=== PATIENT | male | born 1965 | race Two or more races ===

== ENCOUNTER 2021-01-08 10:35 | Outpatient (REF) | payer OTHER, SELFPAY ==
[2021-01-08 10:40] LABS: MANUAL DIFF FLAG NO
[2021-01-08 10:44] LABS: Basophils Absolute Auto 0.1 X10*3/uL (0.0-0.2); Eosinophils Absolute Auto 0.2 X10*3/uL (0.0-0.4); Eosinophils Percent Auto 3.2 % (0-4); Hematocrit 46.2 % (42.0-52.0); Hemoglobin 16.4 g/dl (14.0-18.0); Imm Gran Abs Auto 0.02 X10*3/uL (0.00-0.03); Imm Gran Pct Auto 0.3 % (0.0-0.4); Lymphocytes Absolute Auto 1.7 X10*3/uL (1.2-4.9); Lymphocytes Percent Auto 26.7 % (20-40); Mean Corpuscular HGB Conc 35.5 g/dl (31.0-36.0); Mean Corpuscular Hemoglobin 32.5 pg (27.0-33.0); Mean Corpuscular Volume 91.5 fL (80.0-98.0); Mean Platelet Volume 10.3 fL (9.4-12.4); Monocytes Absolute Auto 0.6 X10*3/uL (0.1-1.2); Monocytes Percent Auto 10.3 % (2-11); Neutrophils Absolute Auto 3.6 x10*3/uL (2.0-8.3); Neutrophils Percent Auto 58.5 % (45-73); Platelet Count 212 X10*3/uL (160-400); Red Blood Count 5.05 X10*6/uL (4.60-5.80); Red Cell Distribution Width 12.1 % (11.0-16.0); White Blood Count 6.2 X10*3/uL (4.8-10.8)
[2021-01-08 10:48] LABS: Appearance Urine CLEAR; Color Urine YELLOW; Glucose Urine UA NEG (NEG); Leukocyte Esterase Urine NEG (NEG); Nitrite Urine NEG (NEG); Urine Blood NEG (NEG); Urine Ketones NEG (NEG); Urine Protein NEG (NEG-TRACE)
[2021-01-08 10:56] LABS: Alanine Aminotransferase 22 U/L (0-40); Albumin Level 4.2 g/dL (3.5-5.0); Alkaline Phosphatase 93 U/L (39-117); Anion Gap 10 (12-20); Aspartate Amino Transferase 20 U/L (5-37); Bilirubin Total 0.9 mg/dL (0.0-1.0); Blood Urea Nitrogen 10 mg/dL (9-16); Calcium 9.1 mg/dL (8.4-10.2); Carbon Dioxide 28 mmol/L (22-29); Chloride 106 mmol/L (96-108); Cholesterol 176 mg/dL; Estimated Glomerular Filt Rate > 60; Glucose Fasting 105 mg/dL (60-99); HDL Cholesterol 41 mg/dL; LDL Cholesterol Calculated 109 mg/dl; Potassium 4.3 mmol/L (3.3-5.1); Sodium 140 mmol/L (135-145); Total Protein 6.8 g/dL (6.5-8.0); Triglycerides 130 mg/dL
[2021-01-08 11:07] LABS: Estimated Average Glucose 105 mg/dL; Hemoglobin A1c % 5.3 %
[2021-01-08 11:17] LABS: Creatinine Urine 112.38 mg/dL; Microalbum/Creatinine Ratio Ur 4.4 ug/mg cr; PSA,Total (Free>4and<10) 0.71 ng/mL (0.00-4.00)
[2021-01-08 11:58] LABS: Reflex LDLD? No
== END 2021-01-08 10:36 | disposition home or self-care (01) ==
LOC: HO.LNP 10:35
PROVIDERS: PCP Internal Medicine; Visit Provider Internal Medicine
DX: Z00.00 Encounter for general adult medical examination without abnormal findings (principal); Z12.5 Encounter for screening for malignant neoplasm of prostate; E79.0 Hyperuricemia without signs of inflammatory arthritis and tophaceous disease; R73.03 Prediabetes; E87.6 Hypokalemia
CPT/HCPCS: 80053; 80061; 81003; 82043; 83036; 84153; 85025

== ENCOUNTER 2021-07-27 10:24 | Day surgery (SDC) | payer OTHER, SELFPAY ==
[2021-07-21 14:57] VITALS: BMI 31.9
--- NOTE | 2021-07-26 10:09 | HO.ANESPROP2 ---
Documented by User: Roxann Jhaveri NP 07/26/21 10:09 HPI - Anesthesia Eval Consult details Narrative: 56yo M for Colonoscopy FORMERLY [facility], [facility] Past Medical History Medical History (Updated 07/21/21 @ 14:56 by Francia Wray RN) Colon polyps Surgical History Surgical History (Updated 07/21/21 @ 14:56 by Francia Wray RN) History of surgery on lower extremity History of thumb surgery Hx of colonoscopy Hx of knee surgery Social History Social History Patient Tobacco Use Status: Never used Tobacco Second Hand Smoke Exposure: No Use of substances other than those prescribed or required for medical reasons: No Are you DNR?: No Advance Directives: No Advance Directives Information Provided: Yes Advance Directives on File: No Meds Allergies Allergy/AdvReac Type Severity Reaction Status Date / Time Penicillins [PENICILLINS] Allergy Unknown UNKNOWN Verified 07/27/21 12:29 Home Medications Medication Instructions Recorded Confirmed Last Taken Type No Known Home Meds 07/21/21 07/21/21 Unknown History Exam Exam Date and Time: July 26, 2021 1009 Height,Weight and Vital Signs: Height 6 ft 1 in Weight 109.769 kg Assessment and Plan Assessment Anesthesia Assessment: Chart Reviewed Documented by User: Ernestina Bella MD 07/27/21 12:34 FORMERLY [facility], [facility] Past Medical History Medical History (Updated 07/21/21 @ 14:56 by Francia Wray RN) Colon polyps Family History Family history of problems with anesthesia: No Surgical History Surgical History (Updated 07/21/21 @ 14:56 by Francia Wray RN) History of surgery on lower extremity History of thumb surgery Hx of colonoscopy Hx of knee surgery History of Problems with Anesthesia: No Social History Social History Patient Tobacco Use Status: Never used Tobacco Second Hand Smoke Exposure: No Use of substances other than those prescribed or required for medical reasons: No Are you DNR?: No Advance Directives: No Advance Directives Information Provided: Yes Advance Directives on File: No Meds Allergies Allergy/AdvReac Type Severity Reaction Status Date / Time Penicillins [PENICILLINS] Allergy Unknown UNKNOWN Verified 07/27/21 12:29 Home Medications Medication Instructions Recorded Confirmed Last Taken Type No Known Home Meds 07/21/21 07/21/21 Unknown History Exam Height,Weight and Vital Signs: Height 6 ft 1 in Weight 109.769 kg Vital Signs Temp Pulse Resp BP Pulse Ox 07/27/21 12:04 98.2 F 56 18 145/83 H 97 Airway Mallampati Class: II TM Dist: >3cm Neck ROM: Full Loose/Missing/Broken Teeth: No Heart: RRR Lungs: CTAB Assessment and Plan Assessment Anesthesia Assessment: Anesthesia Plan Discussed Final Anesthetic Review Family History of Problems with Anesthesia: No History of Problems with Anesthesia: No NPO: Yes ASA Class: I Final Preanesthetic Review: No Changes in Pt Med Stat, Meds/Allgs Chart Reviewed, Consent Obtained/Reviewed and Anes Risks/Benef Reviewed Patient Risk: Low Procedure Risk: Low Assessment/Block/Sedation in SS: Assess/Block/Sedation-SS Anesthetic Plan Anesthetic Plan: MAC: Disposition: Standard PACU
[2021-07-27 12:04] VITALS: BP 145/83; PULSE 56; RESP 18; TEMP 36.8; O2SAT 97
[2021-07-27] MEDS: Lactated Ringers 1,000 ML 100 ML IVCONT (12:06)
--- NOTE | 2021-07-27 12:27 | MHC.SHP ---
Pre-Procedural Eval Section A Date of Service: 07/27/21 The patient is an INPATIENT: No Changes since office visit: No Cold of Flu in the past 2 weeks, No New Medical Problems, No Changes in Medication and No Patient answered all questions The History & Physical has been completed within 30 days and I have reviewed it.: Yes Section B Chief Complaint: Other fecal abnormalities Allergies: Allergies Allergy/AdvReac Type Severity Reaction Status Date / Time Penicillins [PENICILLINS] Allergy Unknown UNKNOWN Unverified 11/21/19 17:42 Plan I have reviewed the history and physical and performed a pertinent physical examination on my patient. No changes have occurred unless specified.
[2021-07-27 13:14] VITALS: BP 110/64; PULSE 76; RESP 76; TEMP 36.2; O2SAT 92
--- NOTE | 2021-07-27 13:22 | P.BOP_ITS ---
Brief Operative Note Date of Service: 07/27/21 Pre-op diagnosis: heme pos stool Post-op diagnosis: same Surgeon: Charles Inman Anesthesia: MAC Was an Thread Checker used for this Procedure?: No Estimated blood loss (mL): 2 Pathology: other (polyps x3) Condition: stable Disposition: PACU
[2021-07-27 13:29] VITALS: BP 123/81; PULSE 66; RESP 20; TEMP 36.2; O2SAT 96
--- NOTE | 2021-07-27 23:54 | OP_ITS ---
SURGEON: Charles Inman MD INDICATIONS: Hemoccult-positive stools. PREOPERATIVE DIAGNOSIS: POSTOPERATIVE DIAGNOSIS: PROCEDURE PERFORMED: Colonoscopy to the terminal ileum with biopsy and snare polypectomy. ESTIMATED BLOOD LOSS: COMPLICATIONS: ANESTHESIA: ASSISTANTS: SPECIMENS: MEDICATIONS: Monitored anesthesia care. DESCRIPTION OF PROCEDURE: History and physical were performed. The risks and benefits of the procedure were explained to the patient. Informed consent was obtained. The patient was placed in the left lateral decubitus position. A digital rectal exam was performed and was found to be normal. The Olympus pediatric video colonoscope was introduced into the rectum and advanced to the cecum without difficulty. The cecum was identified by transillumination, palpation, and identification of ileocecal valve. Examination was performed. The scope was removed. He tolerated the procedure well and was taken to recovery area in stable condition. FINDINGS: The terminal ileum was normal. The visualized colonic mucosa was normal. There were 2 polyps in the cecum measuring less than 5 mm were removed with biopsy forceps. At 45 rather cm was a 6 mm polyp, which was snared. There was stool coating mucosa that was washed and suctioned as best possible. Retroflexed examination showed moderately large internal hemorrhoids. IMPRESSION: Colon polyps. RECOMMENDATION: Follow up the biopsy results. MD QUIANA Licona/DARYAL / [id number]
== END 2021-07-27 14:00 | disposition home or self-care (01) ==
PROVIDERS: PCP Internal Medicine; Visit Provider Internal Medicine Gastroenterology
PROC: 0DJD8ZZ Inspection of Lower Intestinal Tract, Via Natural or Artificial Opening Endoscopic (ICD-10-PCS; CPT 45378; principal; 2021-07-27 12:10)
DX: R19.5 Other fecal abnormalities (principal); Z86.010 Personal history of colon polyps; D12.0 Benign neoplasm of cecum; D12.5 Benign neoplasm of sigmoid colon; K64.8 Other hemorrhoids; Z98.890 Other specified postprocedural states; Z88.0 Allergy status to penicillin
CPT/HCPCS: 45385; 45380; 88305

== ENCOUNTER 2022-01-17 11:40 | Outpatient (REF) | payer OTHER, SELFPAY ==
[2022-01-17 11:45] LABS: MANUAL DIFF FLAG NO
[2022-01-17 12:18] LABS: Basophils Absolute Auto 0.1 X10*3/uL (0.0-0.2); Basophils Percent Auto 1.1 % (0-2); Eosinophils Absolute Auto 0.3 X10*3/uL (0.0-0.4); Hematocrit 47.5 % (42.0-52.0); Hemoglobin 16.6 g/dl (14.0-18.0); Imm Gran Abs Auto 0.03 X10*3/uL (0.00-0.03); Imm Gran Pct Auto 0.5 % (0.0-0.4); Lymphocytes Absolute Auto 2.2 X10*3/uL (1.2-4.9); Lymphocytes Percent Auto 34.6 % (20-40); Mean Corpuscular HGB Conc 34.9 g/dl (31.0-36.0); Mean Corpuscular Hemoglobin 32.3 pg (27.0-33.0); Mean Corpuscular Volume 92.4 fL (80.0-98.0); Mean Platelet Volume 10.3 fL (9.4-12.4); Monocytes Absolute Auto 0.6 X10*3/uL (0.1-1.2); Neutrophils Absolute Auto 3.2 x10*3/uL (2.0-8.3); Neutrophils Percent Auto 50.8 % (45-73); Platelet Count 213 X10*3/uL (160-400); Red Blood Count 5.14 X10*6/uL (4.60-5.80); White Blood Count 6.2 X10*3/uL (4.8-10.8)
[2022-01-17 12:40] LABS: Estimated Average Glucose 105 mg/dL; Hemoglobin A1C 148.3932 umol/L; Hemoglobin A1c % 5.3 %
[2022-01-17 12:47] LABS: Appearance Urine Clear; Color Urine Yellow; Glucose Urine UA Negative (Negative); Leukocyte Esterase Urine Small (1+) (Negative); Nitrite Urine Negative (Negative); UMIC TRIGGER UA YES; Urine Blood Trace (Negative); Urine Ketones Negative (Negative); Urine Protein Negative (Neg-Trace)
[2022-01-17 12:59] LABS: Creatinine Urine 137.42 mg/dL; Microalbumin Urine < 5.0 mg/L; PSA,Total (Free>4and<10) 0.72 ng/mL (0.00-4.00)
[2022-01-17 13:15] LABS: Alanine Aminotransferase 27 U/L (0-40); Albumin Level 4.3 g/dL (3.5-5.0); Alkaline Phosphatase 98 U/L (39-117); Anion Gap 19 (12-20); Aspartate Amino Transferase 23 U/L (5-37); Bilirubin Total 0.5 mg/dL (0.0-1.0); Blood Urea Nitrogen 13 mg/dL (9-16); Calcium 9.3 mg/dL (8.4-10.2); Carbon Dioxide 20 mmol/L (22-29); Chloride 105 mmol/L (96-108); Cholesterol 195 mg/dL; Estimated Glomerular Filt Rate > 60; Glucose Fasting 107 mg/dL (60-99); HDL Cholesterol 43 mg/dL; LDL Cholesterol Calculated 104 mg/dl; Potassium 4.5 mmol/L (3.3-5.1); Sodium 139 mmol/L (135-145); Total Protein 7.3 g/dL (6.5-8.0); Triglycerides 243 mg/dL
[2022-01-17 13:28] LABS: Bacteria Urine None Seen (None Seen); Hyaline Casts Urine 0-2 /LPF (0-2); RBC Urine 0-2 /HPF (0-2); Renal Epithelial Cells Urine Present; Squamous Epithelial Cell Urine 0-2 /HPF (0-2)
== END 2022-01-17 11:41 | disposition home or self-care (01) ==
LOC: HO.LNP 11:40
PROVIDERS: Visit Provider Internal Medicine
DX: Z00.00 Encounter for general adult medical examination without abnormal findings (principal); R73.09 Other abnormal glucose; D69.6 Thrombocytopenia, unspecified; E78.6 Lipoprotein deficiency; Z12.5 Encounter for screening for malignant neoplasm of prostate
CPT/HCPCS: 80053; 80061; 81001; 82043; 83036; 84153; 85025

== ENCOUNTER 2023-01-31 10:27 | Outpatient (REF) | payer OTHER, SELFPAY ==
[2023-01-31 10:36] LABS: MANUAL DIFF FLAG NO
[2023-01-31 10:42] LABS: Appearance Urine Clear; Color Urine Yellow; Glucose Urine UA Negative (Negative); Leukocyte Esterase Urine Negative (Negative); Nitrite Urine Negative (Negative); PH 5.5 (5.0-9.0); Urine Blood Negative (Negative); Urine Ketones Negative (Negative); Urine Protein Negative (Neg-Trace)
[2023-01-31 10:44] LABS: Bacteria Urine None Seen (None Seen); Hyaline Casts Urine 0-2 /LPF (0-2); RBC Urine 0-2 /HPF (0-2); Squamous Epithelial Cell Urine 0-2 /HPF (0-2); WBC Urine 0-5 /HPF (0-5)
[2023-01-31 11:15] LABS: Creatinine Urine 245.89 mg/dL; Microalbum/Creatinine Ratio Ur 7.3 ug/mg cr (<30)
[2023-01-31 11:52] LABS: Basophils Absolute Auto 0.1 X10*3/uL (0.0-0.2); Eosinophils Absolute Auto 0.2 X10*3/uL (0.0-0.4); Eosinophils Percent Auto 2.8 % (0-4); Hematocrit 51.5 % (42.0-52.0); Hemoglobin 17.4 g/dl (14.0-18.0); Imm Gran Abs Auto 0.01 X10*3/uL (0.00-0.03); Imm Gran Pct Auto 0.2 % (0.0-0.4); Lymphocytes Absolute Auto 1.6 X10*3/uL (1.2-4.9); Lymphocytes Percent Auto 27.2 % (20-40); Mean Corpuscular HGB Conc 33.8 g/dl (31.0-36.0); Mean Corpuscular Hemoglobin 31.4 pg (27.0-33.0); Mean Platelet Volume 10.2 fL (9.4-12.4); Monocytes Absolute Auto 0.5 X10*3/uL (0.1-1.2); Monocytes Percent Auto 8.8 % (2-11); Neutrophils Absolute Auto 3.6 x10*3/uL (2.0-8.3); Platelet Count 229 X10*3/uL (160-400); Red Blood Count 5.54 X10*6/uL (4.60-5.80); Red Cell Distribution Width 12.3 % (11.0-16.0)
[2023-01-31 12:13] LABS: Alanine Aminotransferase 31 U/L (0-40); Albumin Level 4.3 g/dL (3.5-5.0); Alkaline Phosphatase 82 U/L (39-117); Anion Gap 11 (12-20); Aspartate Amino Transferase 23 U/L (5-37); Bilirubin Total 0.9 mg/dL (0.0-1.0); Blood Urea Nitrogen 11 mg/dL (9-16); Calcium 9.7 mg/dL (8.4-10.2); Carbon Dioxide 29 mmol/L (22-29); Chloride 104 mmol/L (96-108); Cholesterol 193 mg/dL (<200); Estimated Glomerular Filt Rate > 60; Glucose Fasting 117 mg/dL (60-99); HDL Cholesterol 42 mg/dL (>40); LDL Cholesterol Calculated 126 mg/dL (<100); Potassium 4.1 mmol/L (3.3-5.1); Sodium 140 mmol/L (135-145); Total Protein 7.5 g/dL (6.5-8.0); Triglycerides 128 mg/dL (<150)
[2023-01-31 12:29] LABS: PSA,Total (Free>4and<10) 1.06 ng/mL (0.00-4.00)
[2023-01-31 12:32] LABS: Estimated Average Glucose 108 mg/dL; Hemoglobin A1C 151.0538 umol/L; Hemoglobin A1c % 5.4 % (<6.0)
== END 2023-01-31 10:28 | disposition home or self-care (01) ==
LOC: HO.LNP 10:27
PROVIDERS: Visit Provider Internal Medicine
DX: Z00.00 Encounter for general adult medical examination without abnormal findings (principal); Z12.5 Encounter for screening for malignant neoplasm of prostate; R73.03 Prediabetes; E78.6 Lipoprotein deficiency
CPT/HCPCS: 80053; 80061; 81001; 82043; 82570; 83036; 84153; 85025

== ENCOUNTER 2024-04-01 10:27 | Outpatient (REF) | payer OTHER, SELFPAY ==
[2024-04-01 10:30] LABS: MANUAL DIFF FLAG NO
[2024-04-01 10:49] LABS: Basophils Absolute Auto 0.1 X10*3/uL (0.0-0.2); Basophils Percent Auto 0.6 % (0-2); Eosinophils Absolute Auto 0.1 X10*3/uL (0.0-0.4); Eosinophils Percent Auto 1.3 % (0-4); Hematocrit 50.9 % (42.0-52.0); Hemoglobin 17.5 g/dl (14.0-18.0); Imm Gran Abs Auto 0.02 X10*3/uL (0.00-0.03); Imm Gran Pct Auto 0.2 % (0.0-0.4); Lymphocytes Absolute Auto 1.8 X10*3/uL (1.2-4.9); Lymphocytes Percent Auto 18.6 % (20-40); Mean Corpuscular HGB Conc 34.4 g/dl (31.0-36.0); Mean Corpuscular Hemoglobin 32.2 pg (27.0-33.0); Mean Corpuscular Volume 93.6 fL (80.0-98.0); Mean Platelet Volume 10.3 fL (9.4-12.4); Monocytes Absolute Auto 0.9 X10*3/uL (0.1-1.2); Monocytes Percent Auto 9.9 % (2-11); Neutrophils Absolute Auto 6.6 x10*3/uL (2.0-8.3); Neutrophils Percent Auto 69.4 % (45-73); Platelet Count 201 X10*3/uL (160-400); Red Blood Count 5.44 X10*6/uL (4.60-5.80); Red Cell Distribution Width 12.3 % (11.0-16.0); White Blood Count 9.4 X10*3/uL (4.8-10.8)
[2024-04-01 10:57] LABS: Appearance Urine Hazy; Color Urine Yellow; Estimated Average Glucose 100 mg/dL; Glucose Urine UA Negative (Negative); Hemoglobin A1C 141.8131 umol/L; Hemoglobin A1c % 5.1 % (<6.0); Leukocyte Esterase Urine Negative (Negative); Nitrite Urine Positive (Negative); Specific Gravity - Urine 1.025 (1.005-1.025); UMIC TRIGGER UACC YES; Urine Blood Moderate (2+) (Negative); Urine Ketones 15 mg/dL (Negative); Urine Protein Negative (Neg-Trace)
[2024-04-01 11:19] LABS: PSA,Total (Free>4and<10) 0.97 ng/mL (0.00-4.00)
[2024-04-01 11:25] LABS: Alanine Aminotransferase 23 U/L (0-40); Albumin Level 4.1 g/dL (3.5-5.0); Alkaline Phosphatase 80 U/L (39-117); Anion Gap 12 (12-20); Aspartate Amino Transferase 21 U/L (5-37); Bilirubin Total 1.5 mg/dL (0.0-1.0); Blood Urea Nitrogen 12 mg/dL (9-16); Calcium 9.7 mg/dL (8.4-10.2); Carbon Dioxide 24 mmol/L (22-29); Chloride 107 mmol/L (96-108); Cholesterol 164 mg/dL (<200); Estimated Glomerular Filt Rate > 60; Glucose Fasting 115 mg/dL (60-99); HDL Cholesterol 57 mg/dL (>40); LDL Cholesterol Calculated 90 mg/dL (<100); Potassium 4.3 mmol/L (3.3-5.1); Sodium 139 mmol/L (135-145); Total Protein 7.6 g/dL (6.5-8.0); Triglycerides 88 mg/dL (<150)
[2024-04-01 11:26] LABS: Bacteria Urine 1+ (None Seen); Hyaline Casts Urine 0-2 /LPF (0-2); Squamous Epithelial Cell Urine 0-2 /HPF (0-2); UACC Culture Trigger YES; WBC Urine 0-5 /HPF (0-5)
[2024-04-01 11:47] LABS: Creatinine Urine 400.16 mg/dL; Microalbum/Creatinine Ratio Ur 5.2 ug/mg cr (<30)
--- OUTSIDE RECORDS SUMMARY | 2024-04-01 15:10 | XMS_ITS | Patient Health Record ---
Author Organization Austin Benz MD Address [address] [place], [place] [id number] Care Team Providers Care Seam Finisher Name Role Phone Austin Benz Primary Care Provider [phone] Allergies Allergen (clinical drug ingredient) Drug/Non Drug Allergy documented on EMR Reaction Allergy Type Onset Date Status Penicillin G Benzathine Rash Drug Allergy Active Results Component Value Reference Range Notes Complete Blood Count Auto Di ff (Not yet reviewed by provider) Interpretation: Performing Lab:[facility], [address] [place] [phone] Notes/Report: White Blood Count 9.4 4.8-10.8 X10*3/uL Red Blood Count 5.44 4.60-5.80 X10*6/uL Hemoglobin 17.5 14.0-18.0 g/dl Hematocrit 50.9 42.0-52.0 % Mean Corpuscular Volume 93.6 80.0-98.0 fL Mean Corpuscular Hemoglobin 32.2 27.0-33.0 pg Mean Corpuscular HGB Conc 34.4 31.0-36.0 g/dl Red Cell Distribution Width 12.3 11.0-16.0 % Platelet Count 201 160-400 X10*3/uL Mean Platelet Volume 10.3 9.4-12.4 fL Neutrophils Percent Auto 69.4 45-73 % Imm Gran Pct Auto 0.2 0.0-0.4 % Lymphocytes Percent Auto 18.6 20-40 % Monocytes Percent Auto 9.9 2-11 % Eosinophils Percent Auto 1.3 0-4 % Basophils Percent Auto 0.6 0-2 % NRBC Pct Auto 0.0 0.0-0.2 /100WBC Neutrophils Absolute Auto 6.6 2.0-8.3 x10*3/u L Imm Gran Abs Auto 0.02 0.00-0.03 X10*3/uL Lymphocytes Absolute Auto 1.8 1.2-4.9 X10*3/u L Monocytes Absolute Auto 0.9 0.1-1.2 X10*3/uL Eosinophils Absolute Auto 0.1 0.0-0.4 X10*3/u L Basophils Absolute Auto 0.1 0.0-0.2 X10*3/uL NRBC Abs Auto 0.000 0.0-0.012 X10*3/uL Comprehensive [place]. Panel Fa st (Not yet reviewed by provider) Interpretation: Performing Lab:[facility], [address] [place] [phone] Notes/Report: Sodium 139 135-145 mmol/L Potassium 4.3 3.3-5.1 mmol/L Chloride 107 96-108 mmol/L Carbon Dioxide 24 22-29 mmol/L Anion Gap 12 12-20 Blood Urea Nitrogen 12 9-16 mg/dL Creatinine 1.10 0.5-1.4 mg/dL Estimated Glomerular Filt Rate > 60 Chronic Kidney Disease: Estimated GFR < 60 mL/min/1.73m2 Severe Kidney Disease: Estimated GFR < 15 mL/min/1.73m2 Glucose Fasting 115 60-99 mg/dL A fasting glucose from 100-125 mg/dl is considered impaired (pre-diabetes). Calcium 9.7 8.4-10.2 mg/dL Bilirubin Total 1.5 0.0-1.0 mg/dL Aspartate Amino Transferase 21 5-37 U/L Alanine Aminotransferase 23 0-40 U/L Total Protein 7.6 6.5-8.0 g/dL Albumin Level 4.1 3.5-5.0 g/dL Alkaline Phosphatase 80 39-117 U/L Lipid Panel (Not yet reviewe d by provider) Interpretation: Performing Lab:[facility], [address] [place] [phone] Notes/Report: Triglycerides 88 <150 mg/dL Desirable Triglyceride: less than 150 mg/dL Borderline High Triglyceride 150-199 mg/dL High Triglyceride: 200-499 mg/dL Very High Triglyceride: greater than or equal to 5OO mg/dL Cholesterol 164 <200 mg/dL Desirable Cholesterol: less than 200 mg/dL Borderline High Cholesterol: 200-239 mg/dL High Cholesterol: greater than 239 mg/dL LDL Cholesterol Calculated 90 <100 mg/dL Desirable LDL: less than 100 mg/dL Near Optimal/Above Optimal LDL: 110-129 mg/dL Borderline High LDL: 130-159 mg/dL High LDL: 160-189 mg/dL Very High LDL: greater than or equal to 190 mg/dL HDL Cholesterol 57 >40 mg/dL Desirable HDL: greater than 40 mg/dL Note: This HDL assay may give artificially low results in patients with liver disease. PSA,Total (Free>4and<10) (No t yet reviewed by provider) Interpretation: Performing Lab:[address] [phone] Notes/Report: PSA,Total (Free>4and<10) 0.97 0.00-4.00 ng/mL A Free PSA was not performed: The percentage of Free PSA can be used to enhance the differentiation of prostate cancer from benign prostatic disease in subjects whose PSA levels are between 4.0 and 10.0 ng/mL. For subjects whose PSA levels are below 4.0 or above 10.0 ng/mL, the risk of prostate cancer is determined on the basis of the PSA alone. Therefore the % Free PSA is recommended only for those subjects whose PSA levels are between 4.0 and 10.0 ng/mL. PSA methodology: Arredondo Alinity i Chemiluminescent Microparticle Immunoassay (CMIA) Microalbumin, Random (Not ye t reviewed by provider) Interpretation: Performing Lab:[address] [phone] Notes/Report: Creatinine Urine 400.16 Microalbumin Urine 21.0 Microalbum/Creatinine Ratio Ur 5.2 <30 ug/mg cr Albumin/Creatinine Ratio Reference Ranges: Normal: < 30 ug/mg creatinine Microalbuminuria: 30 - 300 ug/mg creatinine Clinical Albuminuria: > 300 ug/mg creatinine Hemoglobin A1c (Not yet revi ewed by provider) Interpretation: Performing Lab:[address] [phone] Notes/Report: Hemoglobin A1c % 5.1 <6.0 % Hemoglobin A1C Reference Range Adults: 4.8 - 6.0 % Non diabetic: < 6.0 % Goal: < 7.0 % Additional Action Suggested: > 8.0 % Note: Hemoglobin A1c results are invalid for patients with abnormal amounts of HbF. Blood transfusions may impact the HbA1c concentration in the patient sample. Estimated Average Glucose 100 eAG = Estimated average glucose which is %A1C expressed as average glucose, using the formula of the C6X-Kucbtvl Average Glucose study (ADAG), Diabetes Care, Vol.31,#8, Oct. 2007 UA ClnCatch+Micro w/rflx Cul t (Not yet reviewed by provider) Interpretation: Performing Lab:[facility], [address] [place] [phone] Notes/Report: Urine, Clean Catch Color Urine Yellow Appearance Urine Hazy PH 6.0 5.0-9.0 Glucose Urine UA Negative Negative mg/dL Urine Blood Moderate (2+) Negative Specific [place] - Urine 1.025 1.005-1.025 Urine Protein Negative Neg-Trace mg/dL Urine Ketones 15 Negative mg/dL Nitrite Urine Positive Negative Leukocyte Esterase Urine Negative Negative RBC Urine 3-5 0-2 /HPF WBC Urine 0-5 0-5 /HPF Squamous Epithelial Cell Urine 0-2 0-2 /HPF Bacteria Urine 1+ None Seen Hyaline Casts Urine 0-2 0-2 /LPF Reason For Referral No Information Medications Medication SIG (Take, Route, Fr equency, Duration) Notes Start Date End Date Status Valtrex 1 GM 1 tablet Orally ever y 8 hrs for 7 days 10/31/2016 Not-Taking Indomethacin 50 MG 1 capsule with food or milk Orally Three times a day for 10 days 09/20/2016 Not-Taking Immunizations Vaccine Route Administration Date Status Comme nts SARS-COV-2 Pfizer Unknown 05/11/2020 Administered SARS-COV-2 Pfizer Unknown 06/01/2020 Administered Fluarix Quadrivalent Unknown 11/12/2018 Refused Shingrix Unknown 11/12/2018 Refused TDaP Unknown 11/12/2018 Refused Fluarix Quadrivalent Unknown 11/19/2019 Refused Fluarix Quadrivalent Unknown 01/18/2021 Refused Fluarix Quadrivalent Unknown 02/07/2022 Refused Social History Tobacco Use: Social History Observation Description Date Details (start date - stop date) Never Smoker NA - NA Tobacco Use/Smoking Question Answer Notes Patient is a nonsmoker Additional Findings: Tobacco Non-User Cu rrent non-smoker, currently using no form of tobacco Alcohol Screen Question Answer Notes Did you have a drink contain ing alcohol in the past year? Yes How often did you have a dri nk containing alcohol in the past year? 2 to 3 times a week (3 points) How many drinks did you have on a typical day when you were drinking in the past year? 1 or 2 drinks (0 point) How often did you have 6 or more drinks on one occasion in the past year? 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) Low HDL (under 40) (E78.6) Active confirmed Problem 565964016 History of gout (Z87.39) Active confirmed Problem 566041821 Temporary low platelet count (D69.6) Active confirmed Problem 419218989435862 History of benign schwannoma (Z86.018) Active confirmed Encounters Encounter Location Date Provider Diagnosis Austin Benz MD [address] [place] [phone] 04/01/2024 Austin Benz Blood tests for routine general physical examination Z00.00 and Prediabetes R73.09 Assessments Encounter Date Diagnosis (ICD Code) Assessment Notes Treatment Notes Treatment Clinical Notes Section Notes 04/01/2024 Blood tests for routine general physical examination (ICD-10 - Z00.00) 04/01/2024 Prediabetes (ICD-10 - R73.09) Plan Of Treatment Pending Test Test Name Order Date Complete Blood Count Auto Diff 5 Comprehensive [place]. Panel Fast 5 Lipid Panel 04/01/2024 PSA,Total (Free>4and<10) 04/01/2024 Microalbumin, Random 04/01/2024 Hemoglobin A1c 04/01/2024 UA ClnCatch+Micro w/rflx Cult 04/01/2024 Next Appt Details Provider Name:Austin lopez, 04/05/2024 10:00:00 AM, [address], [address], [place], [place], [phone], Insurance Providers Payer Name Payer Address Payer Phone Subscriber Number Group Number Insured Name Patient Relationship to Insured Coverage Start Date Coverage End Date [facility] [id number] [place], [place] [phone] [id number] Randall Mcfadden Self - patient is the insured Medical (General) History Medical History History ICD Code Colonoscopy 12/23/15 w/Dr. Melissa auguste - repeat 5 years; colonoscopy 07/27/21, repeat 5 years
--- OUTSIDE RECORDS SUMMARY | 2024-04-01 15:10 | XMS_ITS ---
Author Organization Austin Benz MD Address [address] [place] [phone] Care Team Providers Care Banjo Repairer Name Role Phone Austin Benz Primary Care Provider [phone] Results Component Value Reference Range Notes Complete Blood Count Auto Di ff (Not yet reviewed by provider) Interpretation: Performing Lab:[facility], [address] [place] [phone] Notes/Report: White Blood Count 9.4 4.8-10.8 X10*3/uL [...] NRBC Abs Auto 0.000 0.0-0.012 X10*3/uL Comprehensive [place]. Panel Fa st (Not yet reviewed by provider) Interpretation: Performing Lab:[facility], [address] [place] [phone] Notes/Report: Sodium 139 135-145 mmol/L Potassium 4.3 [...] yet reviewe d by provider) Interpretation: Performing Lab:[facility], [address] [place] [phone] Notes/Report: Triglycerides 88 <150 mg/dL Desirable Triglyceride: [...] t yet reviewed by provider) Interpretation: Performing Lab:[address] [phone] Notes/Report: PSA,Total (Free>4and<10) 0.97 0.00-4.00 ng/mL A [...] ye t reviewed by provider) Interpretation: Performing Lab:[address] [phone] Notes/Report: Creatinine Urine 400.16 Microalbumin Urine 21.0 Microalbum/Creatinine Ratio Ur 5.2 <30 ug/mg cr Albumin/Creatinine Ratio Reference Ranges: Normal: < 30 ug/mg creatinine Microalbuminuria: 30 - 300 ug/mg creatinine Clinical Albuminuria: > 300 ug/mg creatinine Hemoglobin A1c (Not yet revi ewed by provider) Interpretation: Performing Lab:[address] [phone] Notes/Report: Hemoglobin A1c % 5.1 <6.0 % [...] average glucose, using the formula of the D2Q-Igsqlxm Average Glucose study (ADAG), Diabetes Care, Vol.31,#8, 2007 UA ClnCatch+Micro w/rflx Cul t (Not yet reviewed by provider) Interpretation: Performing Lab:[facility], [address] [place] [phone] Notes/Report: Urine, Clean Catch Color Urine Yellow Appearance Urine Hazy PH 6.0 5.0-9.0 Glucose Urine UA Negative Negative mg/dL Urine Blood Moderate (2+) Negative Specific [place] - Urine 1.025 1.005-1.025 Urine Protein Negative Neg-Trace mg/dL Urine Ketones 15 Negative mg/dL Nitrite Urine Positive Negative Leukocyte Esterase Urine Negative Negative RBC Urine 3-5 0-2 /HPF WBC Urine 0-5 0-5 /HPF Squamous Epithelial Cell Urine 0-2 0-2 /HPF Bacteria Urine 1+ None Seen Hyaline Casts Urine 0-2 0-2 /LPF REASON FOR VISIT FASTING LABS Encounters Encounter Location Date Provider Diagnosis Austin Benz MD [address] [place] [address] [address] [place], [place] [phone] 04/01/2024 Austin Benz Blood tests for routine general physical examination Z00.00 and Prediabetes R73.09 Assessments Encounter Date Diagnosis (ICD Code) Assessment Notes Treatment Notes Treatment Clinical Notes Section Notes 04/01/2024 Blood tests for routine general physical examination (ICD-10 - Z00.00) 04/01/2024 Prediabetes (ICD-10 - R73.09) Plan Of Treatment Pending Test Test Name Order Date Complete Blood Count Auto Diff Comprehensive [place]. Panel Fast 5 Lipid Panel 04/01/2024 PSA,Total (Free>4and<10) 04/01/2024 Microalbumin, Random 04/01/2024 Hemoglobin A1c 04/01/2024 UA ClnCatch+Micro w/rflx Cult 04/01/2024 Next Appt Details Provider Name:Austin Jones ier, 04/05/2024 10:00:00 AM, [address] [place] [address], [address], [place], [place], [phone], Progress Notes * Randall ROGERS JrDOB:[birth year] (59 yo M)Acc No.[id number]:04/01/2024 Progress Note Patient:?Randall ROGERS Jr Provider:?Austin Benz MD :1965???Age:59 Y???Sex:Male Gorge e:04/01/2024 Address:[address] [place], [place] [phone] Subjective: * Chief Complaints: * ???1. FASTING LABS. * Medical History:? Objective: * Vitals:? Assessment: * Assessment: 1.?Blood tests for routine g eneral physical examination - Z00.00 (Primary)???2.?Prediabetes - R73.09??? Plan: * Treatment: 2.?Prediabetes?LAB: Complete Blood Count Auto Diff (Collection Date & Time - 04/01/2024 07:15 AM) ?LAB: Comprehensive [place]. Panel Fast (Collection Date & Time - 04/01/2024 07:15 AM) ?LAB: Lipid Panel (Collection Date & Time - 04/01/2024 07:15 AM) ?LAB: PSA,Total (Free>4and<10) (Collection Date & Time - 04/01/2024 07:15 AM) ?LAB: Microalbumin, Random (Collection Date & Time - 04/01/2024 07:15 AM) ?LAB: Hemoglobin A1c (Collection Date & Time - 04/01/2024 07:15 AM) ?LAB: UA ClnCatch+Micro w/rflx Cult (Collection Date & Time - 04/01/2024 07:15 AM) * Procedure Codes:?88228 VENIP UNCT, ROUTINE* * * The named appointment provid er may or may not be the originator of this progress note, and it is not deemed complete until electronically signed by the appointment provider. Sign off status: Pending * Provider:?Austin Benz MD Date:?0 04/01/2024 Generated for Bree dunlap/Marychuy/Dean on:?04/01/2024 03:10 PM EST
--- OUTSIDE RECORDS SUMMARY | 2024-04-01 15:10 | XMS_ITS ---
Author Organization Austin Benz MD Address [address] [place], [place] [id number] Care Team Providers Care Welder/Fitter Name Role Phone Austin Benz Primary Care Provider Results Component Value Reference Range Notes Complete Blood Count Auto Di ff Reviewed date:01/31/2023 12:33:59 PM Interpretation: Performing Lab:[facility], [address] [place] [phone] Notes/Report: White Blood Count 6.0 4.8-10.8 X10*3/uL Red Blood Count 5.54 4.60-5.80 X10*6/uL Hemoglobin 17.4 14.0-18.0 g/dl Hematocrit 51.5 42.0-52.0 % Mean Corpuscular Volume 93.0 80.0-98.0 fL Mean Corpuscular Hemoglobin 31.4 27.0-33.0 pg Mean Corpuscular HGB Conc 33.8 31.0-36.0 g/dl Red Cell Distribution Width 12.3 11.0-16.0 % Platelet Count 229 160-400 X10*3/uL Mean Platelet Volume 10.2 9.4-12.4 fL Neutrophils Percent Auto 60.0 45-73 % Imm Gran Pct Auto 0.2 0.0-0.4 % Lymphocytes Percent Auto 27.2 20-40 % Monocytes Percent Auto 8.8 2-11 % Eosinophils Percent Auto 2.8 0-4 % Basophils Percent Auto 1.0 0-2 % NRBC Pct Auto 0.0 0.0-0.2 /100WBC Neutrophils Absolute Auto 3.6 2.0-8.3 x10*3/u L Imm Gran Abs Auto 0.01 0.00-0.03 X10*3/uL Lymphocytes Absolute Auto 1.6 1.2-4.9 X10*3/u L Monocytes Absolute Auto 0.5 0.1-1.2 X10*3/uL Eosinophils Absolute Auto 0.2 0.0-0.4 X10*3/u L Basophils Absolute Auto 0.1 0.0-0.2 X10*3/uL NRBC Abs Auto 0.000 0.0-0.012 X10*3/uL Comprehensive [place]. Panel Fa st Reviewed date:01/31/2023 12:28:03 PM Interpretation: Performing Lab:[address] [phone] Notes/Report: Sodium 140 135-145 mmol/L Potassium 4.1 3.3-5.1 mmol/L Chloride 104 96-108 mmol/L Carbon Dioxide 29 22-29 mmol/L Anion Gap 11 12-20 Blood Urea Nitrogen 11 9-16 mg/dL Creatinine 0.95 0.5-1.4 mg/dL Estimated Glomerular Filt Rate > 60 NOTE: For [place] Citizen individuals, multiply the result by 1.210. Chronic Kidney Disease: Estimated GFR < 60 mL/min/1.73m2 Severe Kidney Disease: Estimated GFR < 15 mL/min/1.73m2 Glucose Fasting 117 60-99 mg/dL A fasting glucose from 100-125 mg/dl is considered impaired (pre-diabetes). Calcium 9.7 8.4-10.2 mg/dL Bilirubin Total 0.9 0.0-1.0 mg/dL Aspartate Amino Transferase 23 5-37 U/L Alanine Aminotransferase 31 0-40 U/L Total Protein 7.5 6.5-8.0 g/dL Albumin Level 4.3 3.5-5.0 g/dL Alkaline Phosphatase 82 39-117 U/L Lipid Panel Reviewed date:01/31/2023 12:28:11 PM Interpretation: Performing Lab:[facility], [address] [place] [phone] Notes/Report: Triglycerides 128 <150 mg/dL Desirable Triglyceride: less than 150 mg/dL Borderline High Triglyceride 150-199 mg/dL High Triglyceride: 200-499 mg/dL Very High Triglyceride: greater than or equal to 5OO mg/dL Cholesterol 193 <200 mg/dL Desirable Cholesterol: less than 200 mg/dL Borderline High Cholesterol: 200-239 mg/dL High Cholesterol: greater than 239 mg/dL LDL Cholesterol Calculated 126 <100 mg/dL Desirable LDL: less than 100 mg/dL Near Optimal/Above Optimal LDL: 110-129 mg/dL Borderline High LDL: 130-159 mg/dL High LDL: 160-189 mg/dL Very High LDL: greater than or equal to 190 mg/dL HDL Cholesterol 42 >40 mg/dL Desirable HDL: greater than 40 mg/dL Note: This HDL assay may give artificially low results in patients with liver disease. PSA,Total (Free>4and<10) Reviewed date:01/31/2023 12:32:29 PM Interpretation: Performing Lab:[address] [phone] Notes/Report: PSA,Total (Free>4and<10) 1.06 0.00-4.00 ng/mL A Free PSA was not [...] i Chemiluminescent Microparticle Immunoassay (CMIA) Microalbumin, Random Reviewed date:01/31/2023 12:05:20 PM Interpretation: Performing Lab:[address] [phone] Notes/Report: Creatinine Urine 245.89 Microalbumin Urine 18.0 Microalbum/Creatinine Ratio Ur 7.3 <30 ug/mg cr Albumin/Creatinine Ratio Reference Ranges: Normal: < 30 ug/mg creatinine Microalbuminuria: 30 - 300 ug/mg creatinine Clinical Albuminuria: > 300 ug/mg creatinine Hemoglobin A1c Reviewed date:01/31/2023 12:35:00 PM Interpretation: Performing Lab:[facility], [address] [place] [phone] Notes/Report: Hemoglobin A1c % 5.4 <6.0 % Hemoglobin A1C Reference Range Adults: 4.8 - 6.0 % Non diabetic: < 6.0 % Goal: < 7.0 % Additional Action Suggested: > 8.0 % Note: Hemoglobin A1c results are invalid for patients with abnormal amounts of HbF. Blood transfusions may impact the HbA1c concentration in the patient sample. Estimated Average Glucose 108 eAG = Estimated average glucose which is %A1C expressed as average glucose, using the formula of the [id number] Average Glucose study (ADAG), Diabetes Care, Vol.31,#8, 2007 UA ClnCatch+Micro w/rflx Cul t Reviewed date:01/31/2023 12:34:15 PM Interpretation: Performing Lab:[facility], [address] [place] [phone] Notes/Report: [id number] Urine, Clean Catch Color Urine Yellow Appearance Urine Clear PH 5.5 5.0-9.0 Glucose Urine UA Negative Negative mg/dL Urine Blood Negative Negative Specific [place] - Urine 1.020 1.005-1.025 Urine Protein Negative Neg-Trace mg/dL Urine Ketones Negative Negative mg/dL Nitrite Urine Negative Negative Leukocyte Esterase Urine Negative Negative RBC Urine 0-2 0-2 /HPF WBC Urine 0-5 0-5 /HPF Squamous Epithelial Cell Urine 0-2 0-2 /HPF Bacteria Urine None Seen None Seen Hyaline Casts Urine 0-2 0-2 /LPF REASON FOR VISIT FASTING LABS Encounters Encounter Location Date Provider Diagnosis Austin Benz MD [address] [place], [place] [phone] 01/31/2023 Austin Benz Blood tests for routine general physical examination Z00.00 ; Prediabetes R73.09 and Low HDL (under 40) E78.6 Assessments Encounter Date Diagnosis (ICD Code) Assessment Notes Treatment Notes Treatment Clinical Notes Section Notes 01/31/2023 Blood tests for routine general physical examination (ICD-10 - Z00.00) 01/31/2023 Prediabetes (ICD-10 - R73.09) 01/31/2023 Low HDL (under 40) (ICD-10 - E78.6) Plan Of Treatment Next Appt Details Provider Name:Austin Jones ier, 04/05/2024 10:00:00 AM, [address] [facility], [address], [place], [place], [phone], Progress Notes * Randall ROGERS JrDOB:[birth year] (57 yo M)Acc No.[id number]:01/31/2023 Progress Note Patient:?Randall Rogers Provider:?Austin Benz MD :1965???Age:57 Y???Sex:Male Gorge e:01/31/2023 Address:[address] [place] [address] [facility] Subjective: * Chief Complaints: * ???1. FASTING LABS. * Medical History:? Objective: Assessment: * Assessment: 1.?Blood tests for routine g eneral physical examination - Z00.00 (Primary)?2.?Prediabetes - R73.09?3.?Low HDL (under 40) - E78.6? Plan: * Treatment: 2.?Prediabetes?LAB: Complete Blood Count Auto Diff ?LAB: Comprehensive [place]. Panel Fast ?LAB: Lipid Panel ?LAB: PSA,Total (Free>4and<10) ?LAB: Microalbumin, Random ?LAB: Hemoglobin A1c ?LAB: UA ClnCatch+Micro w/rflx Cult 3.?Low HDL (under 40)?LAB: Complete Blood Count Auto Diff ?LAB: Comprehensive [place]. Panel Fast ?LAB: Lipid Panel ?LAB: PSA,Total (Free>4and<10) ?LAB: Microalbumin, Random ?LAB: Hemoglobin A1c ?LAB: UA ClnCatch+Micro w/rflx Cult * Procedure Codes:?26004 VENIP UNCT, ROUTINE* * * Sign off status: Completed true * Provider:?Austin Benz MD Date:?04/02/2022 Generated for Bree dunlap/Marychuy/Magoitting on:?04/01/2024 03:10 PM EST
--- OUTSIDE RECORDS SUMMARY | 2024-04-01 15:10 | XMS_ITS ---
Author Organization Austin Benz MD Address [address] [place] [phone] Care Team Providers Care Gas Maker Name Role Phone Austin Benz Primary Care Provider Allergies Allergen (clinical drug ingredient) Drug/Non Drug Allergy documented on EMR Reaction Allergy Type Onset Date Status Penicillin G Benzathine Rash Drug Allergy Active Results Component Value Reference Range Notes Occult Blood, Stool, Guaiac Reviewed date:02/10/2023 02:45:13 PM Interpretation:Negative Performing Lab: Notes/Report: Negative Occult Blood, Stool, Guaiac Neg REASON FOR VISIT ANNUAL EXAM, No Covid symptoms Medications Medication SIG (Take, Route, Fr equency, Duration) Notes Start Date End Date Status Valtrex 1 GM 1 tablet Orally ever y 8 hrs for 7 days 10/31/2016 Not-Taking Indomethacin 50 MG 1 capsule with food or milk Orally Three times a day for 10 days 09/20/2016 Not-Taking Social History Tobacco Use: Social History Observation [...] Never (0 point) Points 3 Interpretation Negative Vital Signs Blood pressure systolic 120 mm Hg 02/11/20 23 Blood pressure diastolic 86 mm Hg 023 Height 73 in 02/10/2023 Weight 223 lbs 02/10/2023 BMI 29.42 kg/m2 02/10/2023 weight is down 5 pounds sinc evelia 02-07-22 Encounters Encounter Location Date Provider Diagnosis Austin Benz MD [address] [place], [place] [phone] 02/10/2023 Austin Benz History of benign schwannoma Z86.018 ; Annual physical exam Z00.00 ; Tubular adenoma D36.9 ; Prediabetes R73.09 ; Low HDL (under 40) E78.6 ; Colon cancer screening Z12.11 and Depression screening Z13.31 Assessments Encounter Date Diagnosis (ICD Code) Assessment Notes Treatment Notes Treatment Clinical Notes Section Notes 02/10/2023 History of benign schwannoma (ICD-10 - Z86.018) no sign of recurrence 02/10/2023 Annual physical exam (ICD-10 - Z00.00) labs reviewed an discussed with patient 02/10/2023 Tubular adenoma (ICD-10 - D36.9) had colonoscopy last year 02/10/2023 Prediabetes (ICD-10 - R73.09) stable, no need for medication at this time 02/10/2023 Low HDL (under 40) (ICD-10 - E78.6) stable, will continue to monitor 02/10/2023 Colon cancer screening (ICD-10 - Z12.11) guaiac negative 02/10/2023 Depression screening (ICD-10 - Z13.31) negative screen Plan Of Treatment Treatment Notes Assessment Notes History of benign schwannoma no sign of recurrence Annual physical exam labs reviewed an di scussed with patient Tubular adenoma had colonoscopy last year Prediabetes stable, no need for medication at this time Low HDL (under 40) stable, will continu e to monitor Colon cancer screening guaiac negative Depression screening negative screen Next Appt Details Provider Name:Austin lopez, 04/05/2024 10:00:00 AM, [address], [address], [place], [place], [phone], Progress Notes * Randall ROGERS:[birth year] (57 yo M)Acc No.[id number]:02/10/2023 Progress Notes Patient:?Randall Rogers Provider:?Austin Benz MD :1965???Age:57 Y???Sex:Male Gorge e:02/10/2023 Address:[address] [place], [place] [phone] Subjective: * Chief Complaints: * ???ANNUAL EXAMNo Covid sympt oms * HPI: ???Depression Screening:?PHQ-9?Little interest or pleasure in doing things?Not at all,?Feeling down, depressed, or hopeless?Not at all,?Trouble falling or staying asleep, or sleeping too much?Not at all,?Feeling tired or having little energy?Not at all,?Poor appetite or overeating?Not at all,?Feeling bad about yourself or that you are a failure, or have let yourself or your family down?Not at all,?Trouble concentrating on things, such as reading the newspaper or watching television?Not at all,?Moving or speaking so slowly that other people could have noticed; or the opposite, being so fidgety or restless that you have been moving around a lot more than usual?Not at all,?Thoughts that you would be better off or of hurting yourself in some way?Not at all,?Total Score?0.?Interpretation and Intervention?Depression Screening Findings?Negative,?Follow-Up for Depression?: review of PHQ-9 found negative result, no follow-up needed.?Communication Needs:?Communication Needs?Does the patient have a hearing impairment?No,?Does the patient have a vision impairment??Yes,?If yes, what is the vision impairment??Glasses,?Does the patient have a cognition impairment??No.?SDOH Questions:?SDOH Questions?In the past year have you been worried about losing housing??No,?In the past year have you or any family members you live with been unable to get any of the following when it was really needed? Check all that apply:?None.?Symptom(s):? patient is a 57 yo male here for annual visit with review of recent labs and follow up of chronic issues. * ROS:?General/Constitutional:?Patient denies?fatigue , headache.?Change in appetite?denies.?Chills?denies.?Fever?denies.?Ophthalmologic:?Blurred vision?denies.?Discharge?denies.?Pain?denies.?ENT:?Patient denies?decreased sense of smell , any loss of taste , sore throat.?Decreased hearing?denies.?Sore throat?denies.?Swollen glands?denies.?Endocrine:?Cold intolerance?denies.?Excessive thirst?denies.?Heat intolerance?denies.?Weight loss?denies.?Respiratory:?Cough?denies.?Shortness of breath at rest?denies.?Shortness of breath with exertion?denies.?Wheezing?denies.?Cardiovascular:?Chest pain at rest?denies.?Chest pain with exertion?denies.?Irregular heartbeat?denies.?Shortness of breath?denies.?Gastrointestinal:?Abdominal pain?denies.?Change in bowel habits?denies.?Diarrhea?denies.?Nausea?denies.?Rectal bleeding?denies.?Vomiting?denies .?Genitourinary:?Blood in urine?denies.?Difficulty urinating?denies.?Frequent urination?denies.?Musculoskeletal:?Patient denies?muscle aches.?Painful joints?denies.?Weakness?denies.?Peripheral Vascular:?Patient denies?red and blue toes.?Skin:?Dry skin?denies.?Itching?denies.?Denies?Mole(s),? changes in moles, new moles or any lesions of concern.?Denies?Photosensitivity.?Rash?denies.?Neurologic:?Dizziness?denies.?Fainting?denies.?Headache?denies.? * Medical History:? * Surgical History:? * Hospitalization/Major Diagno stic Procedure:? * Family History:?Father: dece ased 42 yrs.?Mother: alive 83 yrs.?1 sister(s) . 1 son(s) , 1 daughter(s) . .? Father auto accident, Denies mental health/substance abuse family history, No pertinent family medical history, Denies mental health/substance abuse family history. * Social History:?Tobacco Use:?Tobacco Use/Smoking?Patient is a?nonsmoker,?Additional Findings: Tobacco Non-User?Current non-smoker, currently using no form of tobacco.?Drugs/Alcohol:?Alcohol Screen?Did you have a drink containing alcohol in the past year??Yes,?How often did you have a drink containing alcohol in the past year??2 to 3 times a week (3 points),?How many drinks did you have on a typical day when you were drinking in the past year??1 or 2 drinks (0 point),?How often did you have 6 or more drinks on one occasion in the past year??Never (0 point),?Points?3,?Interpretation?Negative.?Miscellaneous:?no Caffeine. Children: yes. no Community involvements. Exercise: yes, bikes and walks 3 times a week. Home smoke detector use: yes. Housing: owning. Living with: family. Marital status: single. Occupation: weeks/months/years, works full-time. Pets: cats: dogs:1 dog. Travel outside of the [place]: yes, [place]. * Medications:?Not-Taking/PRNI ndomethacin 50 MG Capsule 1 capsule with food or milk Orally Three times a dayValtrex 1 GM Tablet 1 tablet Orally every 8 hrsMedication List reviewed and reconciled with the patientNot-Taking/PRN Indomethacin 50 MG Capsule 1 capsule with food or milk Orally Three times a dayNot-Taking/PRN Valtrex 1 GM Tablet 1 tablet Orally every 8 hrsMedication List reviewed and reconciled with the patient * Allergies:?Penicillin G [place] athine: Teja[Allergies Verified] Objective: * Vitals:?Ht: 73, Wt:223, BMI: 29.42, BP: 138/80,repeat:120/86, Repeat BP:120/86 weight is down 5 pounds since 02-07-22. * ???Past Orders: ???Lab:Comprehensive [place]. P mary alice Fast (Order Date - 01/31/2023) (Collection Date - 01/31/2023) ? Value Reference Range ?Sodium 140 135-145 - mmo l/L ?Bilirubin Total 0.9 0.0- 1.0 - mg/dL ?Aspartate Amino Transferase 23 5-37 - U/L ?Alanine Aminotransferase 31 0-40 - U/L ?Total Protein 7.5 6.5-8. 0 - g/dL ?Albumin Level 4.3 3.5-5. 0 - g/dL ?Alkaline Phosphatase 82 39-117 - U/L ?Potassium 4.1 3.3-5.1 - mmol/L ?Chloride 104 96-108 - mm ol/L ?Carbon Dioxide 29 22-29 - mmol/L ?Anion Gap 11 L 12-20 - ?Blood Urea Nitrogen 11 9-16 - mg/dL ?Creatinine 0.95 0.5-1.4 - mg/dL ?Estimated Glomerular Filt Rate > 60 - ?Glucose Fasting 117 H 60-9 9 - mg/dL ?Calcium 9.7 8.4-10.2 - m g/dL ???Lab:Lipid Panel (Order Da 01/31/2023) (Collection Date - 01/31/2023) ? Value Reference Range ?Triglycerides 128 <150 - mg/dL ?Cholesterol 193 <200 - m g/dL ?LDL Cholesterol Calculated 126 H <100 - mg/dL ?HDL Cholesterol 42 >40 - mg/dL ???Lab:PSA,Total (Free>4and< 10) (Order - 01/31/2023) (Collection Date - 01/31/2023) ? Value Reference Range ?PSA,Total (Free>4and<10) 1.06 0.00-4.00 - ng/mL ???Lab:Microalbumin, Random (Order - 01/31/2023) (Collection Date - 01/31/2023) ? Value Reference Range ?Creatinine Urine 245.89 - m g/dL ?Microalbumin Urine 18.0 - mg/L ?Microalbum Creatinine Ratio Ur 7.3 <30 - ug/mg cr ???Lab:Hemoglobin A1c (Order - 01/31/2023) (Collection Date - 01/31/2023) ? Value Reference Range ?Hemoglobin A1c % 5.4 <6. 0 - % ?Estimated Average Glucose 108 - mg/dL ???Lab:Complete Blood Count Auto Diff (Order - 01/31/2023) (Collection Date - 01/31/2023) ? Value Reference Range ?White Blood Count 6.0 4. 8-10.8 - X10*3/uL ?Red Blood Count 5.54 4.60 -5.80 - X10*6/uL ?Hemoglobin 17.4 14.0-18.0 - g/dl ?Hematocrit 51.5 42.0-52.0 - % ?Mean Corpuscular Volume 93.0 80.0-98.0 - fL ?Mean Corpuscular Hemoglobin 31.4 27.0-33.0 - pg ?Mean Corpuscular HGB Conc 33.8 31.0-36.0 - g/dl ?Red Cell Distribution Width 12.3 11.0-16.0 - % ?Platelet Count 229 160-4 00 - X10*3/uL ?Mean Platelet Volume 10.2 9.4-12.4 - fL ?Neutrophils Percent Auto 60.0 45-73 - % ?Imm Gran Pct Auto 0.2 0. 0-0.4 - % ?Lymphocytes Percent Auto 27.2 20-40 - % ?Monocytes Percent Auto 8.8 2-11 - % ?Eosinophils Percent Auto 2.8 0-4 - % ?Basophils Percent Auto 1.0 0-2 - % ?NRBC Pct Auto 0.0 0.0-0. 2 - /100WBC ?Neutrophils Absolute Auto 3.6 2.0-8.3 - x10*3/uL ?Imm Gran Abs Auto 0.01 0. 00-0.03 - X10*3/uL ?Lymphocytes Absolute Auto 1.6 1.2-4.9 - X10*3/uL ?Monocytes Absolute Auto 0.5 0.1-1.2 - X10*3/uL ?Eosinophils Absolute Auto 0.2 0.0-0.4 - X10*3/uL ?Basophils Absolute Auto 0.1 0.0-0.2 - X10*3/uL ?NRBC Abs Auto 0.000 0.0-0. 012 - X10*3/uL ???Lab:UA ClnCatch+Micro w/r flx Cult (Order Date - 01/31/2023) (Collection Date - 01/31/2023) ? Value Reference Range ?Color Urine Yellow - ?Appearance Urine Clear - ?PH 5.5 5.0-9.0 - ?Glucose Urine UA Negative Neg ative - mg/dL ?Urine Blood Negative Negative - ?Specific [place] - Urine 1.020 1.005-1.025 - ?Urine Protein Negative Neg-Tr edward - mg/dL ?Urine Ketones Negative Negati ve - mg/dL ?Nitrite Urine Negative Negati ve - ?Leukocyte Esterase Urine Negative Negative - ?RBC Urine 0-2 0-2 - /HPF ?WBC Urine 0-5 0-5 - /HPF ?Squamous Epithelial Cell Urine 0-2 0-2 - /HPF ?Bacteria Urine None Seen None Seen - ?Hyaline Casts Urine 0-2 0-2 - /LPF * Examination: ???General Examination: ?GENERAL APPEARANCE:?well developed, well nourished, in no acute distress.?HEAD:?normocephalic, atraumatic.?EYES:?pupils equal, round, reactive to light and accommodation, sclera non-icteric.?EARS:?normal.?ORAL CAVITY:?mucosa moist.?THROAT:?clear.?NECK/THYROID:?neck supple, full range of motion, no cervical lymphadenopathy, no bruits.?SKIN:?warm and dry, no suspicious lesions.?HEART:?regular rate and rhythm, S1, S2 normal, no murmurs.?LUNGS:?clear to auscultation bilaterally.?ABDOMEN:?soft, nontender, nondistended, bowel sounds present, normal, no organomegaly , no masses palpable.?RECTAL EXAM:?normal tone, no external hemorrhoids, no masses palpable, prostate normal, stool guaiac negative.?MALE GENITOURINARY:?circumcised, no penile lesions or discharge, testes descended bilaterally.?EXTREMITIES:?no clubbing, cyanosis, or edema.?NEUROLOGIC:?nonfocal, motor strength normal upper and lower extremities, sensory exam intact.? Assessment: * Assessment: 1.?Annual physical exam - Z0 0.00 (Primary)?2.?History of benign schwannoma - Z86.018?3.?Tubular adenoma - D36.9?4.?Prediabetes - R73.09?5.?Low HDL (under 40) - E78.6?6.?Colon cancer screening - Z12.11?7.?Depression screening - Z13.31? Plan: * Treatment: 2.?History of benign schwann bismark? Notes: no sign of recurrence.?? 3.?Tubular adenoma? Notes: had colonoscopy last year.?? 4.?Prediabetes? Notes: stable, no need for medication at this time.?? 5.?Low HDL (under 40)? Notes: stable, will continue to monitor.?? 6.?Colon cancer screening?LAB: Occult Blood, Stool, Guaiac?Negative ? Value Reference Range ?Occult Blood, Stool, Guaiac Neg Notes: guaiac negative.??7.?Depression screening? Notes: negative screen.?? * Procedure Codes:?32764 TEST FOR BLOOD, FECES * * Sign off status: Completed true * Provider:?Austin Benz MD Date:?04/13/2022 Generated for Bree dunlap/Faxing/eTransmitting on:?04/01/2024 03:09 PM EST History and Physical Notes * HPI (History of Present Illness) Category Sub-Category Detail Notes Category Not es Symptom(s) patient is a 57 yo male here for annual visit with review of recent labs and follow up of chronic issues. Depression Screening PHQ-9 Little inte rest or pleasure in doing things: Not at all Feeling down, depressed, or hopeless: No t at all Trouble falling or staying asleep, or sl eeping too much: Not at all Feeling tired or having little energy: N ot at all Poor appetite or overeating: Not at all Feeling bad about yourself o r that you are a failure, or have let yourself or your family down: Not at all Trouble concentrating on thi ngs, such as reading the newspaper or watching television: Not at all Moving or speaking so slowly that other people could have noticed; or the opposite, being so fidgety or restless that you have been moving around a lot more than usual: Not at all Thoughts that you would be b david off or of hurting yourself in some way: Not at all Total Score: 0 Interpretation and Intervention Depression Selvin alegre Findings: Negative Follow-Up for Depression: : review of PH Q-9 found negative result, no follow-up needed SDOH Questions SDOH Questions In the past year have you been worried about losing housing?: No In the past year have you or any family members you live with been unable to get any of the following when it was really needed? Check all that apply:: None Communication Needs Communication Needs Does the patient have a hearing impairment: No Does the patient have a vision impairmen t?: Yes ?If yes, what is the vision impairment?: Glasses Does the patient have a cognition impair ment?: No Examination Category Sub-Category Detail Notes Category Not es General Examination GENERAL APPEARANCE: well dev eloped, well nourished, in no acute distress HEAD: normocephalic, atrau matic EYES: pupils equal, round, reactive to light and accommodation, sclera non- icteric EARS: normal THROAT: clear NECK/THYROID: neck supple, full ra nge of motion, no cervical lymphadenopathy, no bruits HEART: regular rate and rhy thm, S1, S2 normal, no murmurs LUNGS: clear to auscultatio n bilaterally ABDOMEN: soft, nontender, non distended, bowel sounds present, normal, no organomegaly , no masses palpable NEUROLOGIC: nonfocal, motor stre ngth normal upper and lower extremities, sensory exam intact SKIN: warm and dry, no shelby picious lesions EXTREMITIES: no clubbing, cyanosi s, or edema MALE GENITOURINARY: circumcised, no peni le lesions or discharge, testes descended bilaterally RECTAL EXAM: normal tone, no exte rnal hemorrhoids, no masses palpable, prostate normal, stool guaiac negative ORAL CAVITY: mucosa moist
--- OUTSIDE RECORDS SUMMARY | 2024-04-01 15:10 | XMS_ITS | Patient Health Record ---
Author Organization [facility] Address [address] [place] [address] Care Team Providers Care Waste Baler Name Role Phone Austin Benz MD Primary Care Provider Charles Oquendo Jr [phone] ALLERGIES Allergen (clinical drug ingredient) Drug/Non Drug Allergy documented on EMR Reaction Allergy Type Onset Date Status Penicillin Unknown Drug Allergy Active REASON FOR REFERRAL No Information MEDICATIONS Medication SIG (Take, Route, Frequency, Duration) Notes Start Date End Date Status MiraLax (colon prep) 17 GM/SCOOP mixed with Gatorade or Crystal Light Orally begin at 5:00 p.m. the day before the procedure for 1 day 07/08/2021 Active IMMUNIZATIONS Vaccine Route Administration Date Status Comme nts Influenza Unknown 07/08/2021 Refused SOCIAL HISTORY Sex Assigned At : Social History Observation Description Sex Assigned At Unknown PROBLEMS Problem Type ICD Code Onset Dates Problem Status W/U Status Risk SNOMED Code Notes Problem Colon cancer screening (Z12.11) Active confirmed 236169948 Problem Abnormal findings in stool (R19.5) Active confirmed 602933143 Problem Personal history of colonic polyps (Z86.010) Active confirmed 883849457 PLAN OF TREATMENT Future Test Test Name Order Date COLONOSCOPY 11/04/2015 COLONOSCOPY 07/08/2021 Insurance Providers Payer Name Payer Address Payer Phone Subscriber Number Group Number Insured Name Patient Relationship to Insured Coverage Start Date Coverage End Date [address] [id number] [place] [address] [id number] CYNTHIA ROGERS Self - patient is the insured MEDICAL (GENERAL) HISTORY Medical History History ICD Code Colon polyps Surgical History Surgery Date(Month/Year) thumb surgery-left 1985 knee surgery right leg tumor removed 2018
== END 2024-04-01 10:28 | disposition home or self-care (01) ==
LOC: HO.LNP 10:27
PROVIDERS: Visit Provider Internal Medicine
DX: Z00.00 Encounter for general adult medical examination without abnormal findings (principal); R73.09 Other abnormal glucose; Z12.5 Encounter for screening for malignant neoplasm of prostate
CPT/HCPCS: 80053; 80061; 81001; 82043; 82570; 83036; 84153; 85025; 87086

== ENCOUNTER 2024-04-05 15:16 | Outpatient (REF) | payer OTHER, SELFPAY ==
[2024-04-05 15:32] LABS: Color Urine Dark Yellow; Glucose Urine UA Negative (Negative); Leukocyte Esterase Urine Negative (Negative); Nitrite Urine Negative (Negative); PH 5.5 (5.0-9.0); Specific Gravity - Urine 1.025 (1.005-1.025); UMIC TRIGGER UA YES; Urine Blood Negative (Negative); Urine Ketones Negative (Negative); Urine Protein 30 (1+) mg/dL (Neg-Trace)
[2024-04-05 15:33] LABS: Appearance Urine Hazy
[2024-04-05 15:46] LABS: Bacteria Urine None Seen (None Seen); Hyaline Casts Urine >20 /LPF (0-2); RBC Urine 0-2 /HPF (0-2); Squamous Epithelial Cell Urine 0-2 /HPF (0-2); WBC Urine 0-5 /HPF (0-5)
== END 2024-04-05 15:17 | disposition home or self-care (01) ==
LOC: HO.LNP 15:16
PROVIDERS: Visit Provider Internal Medicine
DX: R31.29 Other microscopic hematuria (principal)
CPT/HCPCS: 81001

== ENCOUNTER 2024-07-15 12:12 | Outpatient (REF) | payer OTHER, SELFPAY ==
[2024-07-15 12:41] LABS: Appearance Urine Clear; Color Urine Yellow; Glucose Urine UA Negative (Negative); Leukocyte Esterase Urine Negative (Negative); Nitrite Urine Negative (Negative); PH 5.5 (5.0-9.0); Specific Gravity - Urine 1.015 (1.005-1.025); Urine Blood Negative (Negative); Urine Ketones Trace mg/dL (Negative); Urine Protein Negative (Neg-Trace)
--- OUTSIDE RECORDS SUMMARY | 2024-07-15 12:42 | XMS_ITS | Patient Health Record ---
Author Organization [facility] Address [address] [place] [address] Care Team Providers Care Name Plate Stamping Machine Operator Name Role Phone Austin Benz MD Primary Care Provider Charles Oquendo Jr Allergies Allergen (clinical drug ingredient) Drug/Non Drug Allergy documented on EMR Reaction Allergy Type Onset Date Status Penicillin Unknown Drug Allergy Active Reason For Referral No Information Medications Medication SIG (Take, Route, Frequency, Duration) Notes Start Date End Date Status MiraLax (colon prep) 17 GM/SCOOP mixed with Gatorade or Crystal Light Orally begin at 5:00 p.m. the day before the procedure for 1 day 07/08/2021 Active Immunizations Vaccine Route Administration Date Status Comme nts Influenza Unknown 07/08/2021 Refused Problems Problem Type SNOMED Code ICD Code Onset Dates Problem Status W/U Status Risk Notes Problem 305819992 Colon cancer screening (Z12.11) Active confirmed Problem 758405807 Personal history of colonic polyps (Z86.010) Active confirmed Problem 244053997 Abnormal findings in stool (R19.5) Active confirmed Plan Of Treatment Future Test Test Name Order Date COLONOSCOPY 11/04/2015 COLONOSCOPY 07/08/2021 Insurance Providers Payer Name Payer Address Payer Phone Subscriber Number Group Number Insured Name Patient Relationship to Insured Coverage Start Date Coverage End Date [facility] [address] [place] [address] [id number] CYNTHIA ROGERS Self - patient is the insured Medical (General) History Medical History History ICD Code Colon polyps Surgical History Surgery Date(Month/Year) thumb surgery-left 1985 knee surgery right leg tumor removed 2018
--- OUTSIDE RECORDS SUMMARY | 2024-07-15 12:43 | XMS_ITS ---
Author Organization Austin Benz MD Address [address] [place], [place] [id number] Care Team Providers Care Clinical Project Leader Name Role Phone Austin Benz Primary Care Provider [phone] Results Component Value Reference Range Notes Complete Blood Count Auto Di ff Reviewed date:04/01/2024 06:00:06 PM Interpretation: Performing Lab:[facility], [address] [place] [phone] Notes/Report: White Blood Count 9.4 4.8-10.8 X10*3/uL [...] NRBC Abs Auto 0.000 0.0-0.012 X10*3/uL Comprehensive Raymond. Panel Fa st Reviewed date:04/01/2024 05:17:02 PM Interpretation: Performing Lab:[address] [phone] Notes/Report: Sodium 139 135-145 mmol/L Potassium 4.3 [...] Alkaline Phosphatase 80 39-117 U/L Lipid Panel Reviewed date:04/01/2024 05:03:59 PM Interpretation: Performing Lab:[address] [phone] Notes/Report: Triglycerides 88 <150 mg/dL Desirable Triglyceride: [...] patients with liver disease. PSA,Total (Free>4and<10) Reviewed date:04/01/2024 05:08:34 PM Interpretation: Performing Lab:[address] [phone] Notes/Report: PSA,Total (Free>4and<10) 0.97 0.00-4.00 ng/mL A [...] Chemiluminescent Microparticle Immunoassay (CMIA) Microalbumin, Random Reviewed date:04/01/2024 05:03:48 PM Interpretation: Performing Lab:[address] [phone] Notes/Report: Creatinine Urine 400.16 Microalbumin Urine 21.0 Microalbum/Creatinine Ratio Ur 5.2 <30 ug/mg cr Albumin/Creatinine Ratio Reference Ranges: Normal: < 30 ug/mg creatinine Microalbuminuria: 30 - 300 ug/mg creatinine Clinical Albuminuria: > 300 ug/mg creatinine Hemoglobin A1c Reviewed date:04/01/2024 05:03:03 PM Interpretation: Performing Lab:[address] [phone] Notes/Report: Hemoglobin A1c % 5.1 <6.0 % [...] average glucose, using the formula of the C4U-Zsseato Average Glucose study (ADAG), Diabetes Care, Vol.31,#8, Oct. 2007 UA ClnCatch+Micro w/rflx Cul t Reviewed date:04/08/2024 07:18:44 AM Interpretation:04-05-2024 Performing Lab:[facility], [address] [place] [phone] Notes/Report: Urine, Clean Catch Color Urine Yellow Appearance Urine Hazy PH 6.0 5.0-9.0 Glucose Urine UA Negative Negative mg/dL Urine Blood Moderate (2+) Negative Specific Sewell - Urine 1.025 1.005-1.025 Urine Protein Negative [...] Location Date Provider Diagnosis Austin Benz MD [address] [place] [address] [address] [place], [place] [phone] 04/01/2024 Austin Benz Blood tests for routine general physical examination Z00.00 and Prediabetes R73.09 Assessments Encounter Date Diagnosis (ICD Code) Assessment Notes Treatment Notes Treatment Clinical Notes Section Notes 04/01/2024 Blood tests for routine general physical examination (ICD-10 - Z00.00) 04/01/2024 Prediabetes (ICD-10 - R73.09) Plan Of Treatment Next Appt Details Provider Name:Austin lopez, 04/01/2025 07:30:00 AM, [address] [place] [address], [address], [place], [place], [phone], Provider Name:Austin Jones ier, 04/08/2025 08:30:00 AM, [address] [facility], [address], [place], [place], [phone], Progress Notes * Randall ROGERS JrDOB:[birth year] (59 yo M)Acc No.[id number]:04/01/2024 Progress Note Patient:?Randall ROGERS Jr Provider:?Austin Benz MD :1965???Age:59 Y???Sex:Male Gorge e:04/01/2024 Address:[address] [place], [place] [phone] Subjective: * Chief Complaints: * ???1. FASTING LABS. * Medical History:? Objective: * Vitals:? Assessment: * Assessment: 1.?Blood tests for routine g eneral physical examination - Z00.00 (Primary)???2.?Prediabetes - R73.09??? Plan: * Treatment: 2.?Prediabetes?LAB: Complete Blood Count Auto Diff (Collection Date & Time - 04/01/2024 07:15 AM) ?LAB: Comprehensive Raymond. Panel Fast (Collection Date & Time - [...] Time - 04/01/2024 07:15 AM) * Procedure Codes:?80297 VENIP UNCT, ROUTINE* * * The named appointment provid er may or may not be the originator of this progress note, and it is not deemed complete until electronically signed by the appointment provider. Sign off status: Pending * Provider:?Austin Benz MD Date:?0 04/01/2024 Generated for Bree dunlap/Marychuy/Magoitting on:?07/15/2024 12:42 PM EDT
--- OUTSIDE RECORDS SUMMARY | 2024-07-15 12:43 | XMS_ITS ---
Author Name [facility] Organization Unknown Care Team Organization Name Specialty Phone Email Start Date End Derek palma [facility] 08/05/2022 [facility] MD Primary Care
--- OUTSIDE RECORDS SUMMARY | 2024-07-15 12:43 | XMS_ITS | Patient Health Record ---
Author Organization Austin Benz MD Address [address] [place], [place] [phone] Care Team Providers Care Dormitory Supervisor Name Role Phone Austin Benz Primary Care Provider Allergies Allergen (clinical drug ingredient) Drug/Non Drug Allergy documented on EMR Reaction Allergy Type Onset Date Status Penicillin G Benzathine Rash Drug Allergy Active Results Component Value Reference Range Notes Urine Culture Reviewed date:04/02/2024 12:46:39 PM Interpretation: Performing Lab:[facility], [address] [place] [phone] Notes/Report: Urine Culture No growth. Complete Blood Count Auto Di ff Reviewed date:04/01/2024 06:00:06 PM Interpretation: Performing Lab:[facility], [address] [place] [phone] Notes/Report: White Blood Count 9.4 4.8-10.8 X10*3/uL [...] NRBC Abs Auto 0.000 0.0-0.012 X10*3/uL Comprehensive Kingsley. Panel Fa st Reviewed date:04/01/2024 05:17:02 PM Interpretation: Performing Lab:[facility], [address] [place] [phone] Notes/Report: Sodium 139 135-145 mmol/L Potassium 4.3 [...] Panel Reviewed date:04/01/2024 05:03:59 PM Interpretation: Performing Lab:[facility], [address] [place] [phone] Notes/Report: Triglycerides 88 <150 mg/dL Desirable Triglyceride: [...] (Free>4and<10) Reviewed date:04/01/2024 05:08:34 PM Interpretation: Performing Lab:[facility], [address] [place] [phone] Notes/Report: PSA,Total (Free>4and<10) 0.97 0.00-4.00 ng/mL A [...] Random Reviewed date:04/01/2024 05:03:48 PM Interpretation: Performing Lab:[facility], [address] [place] [phone] Notes/Report: Creatinine Urine 400.16 Microalbumin Urine 21.0 Microalbum/Creatinine Ratio Ur 5.2 <30 ug/mg cr Albumin/Creatinine Ratio Reference Ranges: Normal: < 30 ug/mg creatinine Microalbuminuria: 30 - 300 ug/mg creatinine Clinical Albuminuria: > 300 ug/mg creatinine Hemoglobin A1c Reviewed date:04/01/2024 05:03:03 PM Interpretation: Performing Lab:[facility], [address] [place] [phone] Notes/Report: Hemoglobin A1c % 5.1 <6.0 % [...] average glucose, using the formula of the I0I-Syjlhwq Average Glucose study (ADAG), Diabetes Care, Vol.31,#8, Oct. 2007 UA ClnCatch+Micro w/rflx Cul t Reviewed date:04/08/2024 07:18:44 AM Interpretation:04-05-2024 Performing Lab:[facility], [address] [place] [phone] Notes/Report: Urine, Clean Catch Color Urine Yellow Appearance Urine Hazy PH 6.0 5.0-9.0 Glucose Urine UA Negative Negative mg/dL Urine Blood Moderate (2+) Negative Specific Belcher - Urine 1.025 1.005-1.025 Urine Protein Negative Neg-Trace mg/dL Urine Ketones 15 Negative mg/dL Nitrite Urine Positive Negative Leukocyte Esterase Urine Negative Negative RBC Urine 3-5 0-2 /HPF WBC Urine 0-5 0-5 /HPF Squamous Epithelial Cell Urine 0-2 0-2 /HPF Bacteria Urine 1+ None Seen Hyaline Casts Urine 0-2 0-2 /LPF Occult Blood, Stool, Guaiac Reviewed date:04/05/2024 10:56:22 AM Interpretation:Negative Performing Lab: Notes/Report: Negative Occult Blood, Stool, Guaiac Neg Urinalysis and Microscopic Reviewed date:04/08/2024 08:52:11 AM Interpretation: Performing Lab:[facility], [address] [place] [phone] Notes/Report: Color Urine Dark Yellow Appearance Urine Hazy PH 5.5 5.0-9.0 Glucose Urine UA Negative Negative mg/dL Urine Blood Negative Negative Specific Belcher - Urine 1.025 1.005-1.025 Urine Protein 30 (1+) Neg-Trace mg/dL Urine Ketones Negative Negative mg/dL Nitrite Urine Negative Negative Leukocyte Esterase Urine Negative Negative RBC Urine 0-2 0-2 /HPF WBC Urine 0-5 0-5 /HPF Squamous Epithelial Cell Urine 0-2 0-2 /HPF Bacteria Urine None Seen None Seen Hyaline Casts Urine >20 0-2 /LPF Reason For Referral No Information [...] Problem Status W/U Status Risk Notes Problem 053293800 Tubular adenoma (D36.9) Active confirmed Problem 816514288 Erectile dysfunction due to diseases classified elsewhere (N52.1) Active confirmed Problem 1897541 Prediabetes (R73.09) Active confirmed Problem 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) Low HDL (under 40) (E78.6) Active confirmed Problem 061279430 History of gout (Z87.39) Active confirmed Problem 971587324 Temporary low platelet count (D69.6) Active confirmed Problem 482598664896282 History of benign schwannoma (Z86.018) Active confirmed Vital Signs Blood pressure diastolic 60 mm Hg 04/05/2024 jesse ght is up 7 pounds since 02-10-25 Height 73 in 04/05/2024 weight is up 7 pounds since 02-10-25 Blood pressure systolic 108 mm Hg 04/05/2024 weig ht is up 7 pounds since 02-10-25 Weight 230 lbs 04/05/2024 weight is up 7 pounds since 02-10-25 BMI 30.34 kg/m2 04/05/2024 weight is up 7 pounds since 02-10-25 Encounters Encounter Location Date Provider Diagnosis Austin Benz MD [address] [place] [phone] 04/01/2024 Austin Benz Blood tests for routine general physical examination Z00.00 and Prediabetes R73.09 Austin Benz MD [address] [place] [address] Drive [address] [place] [id number] 07/15/2024 Austin Benz Hematuria R31.9 Austin Benz MD [address] [place] [address] Drive [address] [place] [id number] 04/05/2024 Austin Benz Microscopic hematuria R31.29 ; Annual physical exam Z00.00 ; Prediabetes R73.09 ; Colon cancer screening Z12.11 and Depression screening Z13.31 Assessments Encounter Date Diagnosis (ICD Code) Assessment Notes Treatment Notes Treatment Clinical Notes Section Notes 04/01/2024 Blood tests for routine general physical examination (ICD-10 - Z00.00) 07/15/2024 Hematuria (ICD-10 - R31.9) 04/05/2024 Microscopic hematuria (ICD-10 - R31.29) pending ;labs, will continue to monitor 04/05/2024 Annual physical exam (ICD-10 - Z00.00) labs reviewed ad discussed with patient 04/01/2024 Prediabetes (ICD-10 - R73.09) 04/05/2024 Prediabetes (ICD-10 - R73.09) doing well, no need for medication at this time 04/05/2024 Colon cancer screening (ICD-10 - Z12.11) guaiac negative 04/05/2024 Depression screening (ICD-10 - Z13.31) negative screen Plan Of Treatment Pending Test Test Name Order Date UA ClnCatch+Micro w/rflx Cult 07/15/2024 Next Appt Details Provider Name:Austin Jones ier, 04/01/2025 07:30:00 AM, [address] [place] [address], [address] [place], [place], [phone], Provider Name:Austin mclainr, 04/08/2025 08:30:00 AM, [address] [place] [address], [address], [place], [place], [phone], Insurance Providers Payer Name Payer Address Payer Phone Subscriber Number Group Number Insured Name Patient Relationship to Insured Coverage Start Date Coverage End Date [facility] [id number] [place], [place] [id number] Randall Mcfadden Self - patient is the insured Medical (General) History Medical History History ICD Code Colonoscopy 12/23/15 w/Dr. Melissa auguste - repeat 5 years; colonoscopy 07/27/21, repeat 5 years
--- OUTSIDE RECORDS SUMMARY | 2024-07-15 12:43 | XMS_ITS ---
Author Organization Austin Benz MD Address [address] [place] [phone] Care Team Providers Care Computer Forensic Examiner Name Role Phone Austin Benz Primary Care Provider Allergies Allergen (clinical drug ingredient) Drug/Non Drug Allergy documented on EMR Reaction Allergy Type Onset Date Status Penicillin G Benzathine Rash Drug Allergy Active Results Component Value Reference Range Notes Occult Blood, Stool, Guaiac Reviewed date:04/05/2024 10:56:22 AM Interpretation:Negative Performing Lab: Notes/Report: Negative Occult Blood, Stool, Guaiac Neg Urinalysis and Microscopic Reviewed date:04/08/2024 08:52:11 AM Interpretation: Performing Lab:[facility], [address] [place] [id number] Notes/Report: Color Urine Dark Yellow Appearance Urine Hazy PH 5.5 5.0-9.0 Glucose Urine UA Negative Negative mg/dL Urine Blood Negative Negative Specific [place] - Urine 1.025 1.005-1.025 Urine Protein 30 (1+) Neg-Trace mg/dL Urine Ketones Negative Negative mg/dL Nitrite Urine Negative Negative Leukocyte Esterase Urine Negative Negative RBC Urine 0-2 0-2 /HPF WBC Urine 0-5 0-5 /HPF Squamous Epithelial Cell Urine 0-2 0-2 /HPF Bacteria Urine None Seen None Seen Hyaline Casts Urine >20 0-2 /LPF REASON FOR VISIT ANNUAL EXAM/must see UA Medications Medication SIG (Take, Route, Fr equency, [...] Interpretation Negative Vital Signs Blood pressure systolic 108 mm Hg 04/05/19 25 Blood pressure diastolic 60 mm Hg 025 Height 73 in 04/05/2024 Weight 230 lbs 04/05/2024 BMI 30.34 kg/m2 04/05/2024 weight is up 7 pounds since 02-10-25 Encounters Encounter Location Date Provider Diagnosis Austin Benz MD [address] [place] [address] [address] [place], [place] [phone] 04/05/2024 Austin Benz Microscopic hematuria R31.29 ; Annual physical exam Z00.00 ; Prediabetes R73.09 ; Colon cancer screening Z12.11 and Depression screening Z13.31 Assessments Encounter Date Diagnosis (ICD Code) Assessment Notes Treatment Notes Treatment Clinical Notes Section Notes 04/05/2024 Microscopic hematuria (ICD-10 - R31.29) pending ;labs, will continue to monitor 04/05/2024 Annual physical exam (ICD-10 - Z00.00) labs reviewed ad discussed with patient 04/05/2024 Prediabetes (ICD-10 - R73.09) doing well, no need for medication at this time 04/05/2024 Colon cancer screening (ICD-10 - Z12.11) guaiac negative 04/05/2024 Depression screening (ICD-10 - Z13.31) negative screen Plan Of Treatment Treatment Notes Assessment Notes Microscopic hematuria pending ;labs, jg l continue to monitor Annual physical exam labs reviewed ad di scussed with patient Prediabetes doing well, no need for medication at this time Colon cancer screening guaiac negative Depression screening negative screen Next Appt Details Provider Name:Austin Jones ier, 04/01/2025 07:30:00 AM, [address], [address], [place], [place], [phone], Provider Name:Austin Jones ier, 04/08/2025 08:30:00 AM, [address], [address], [place], [place], [phone], Progress Notes * Randall ROGERS JrDOB:[birth year] (59 yo M)Acc No.[id number]:04/05/2024 Progress Notes Patient:?Randall ROGERS Jr Provider:?Austin Benz MD :1965???Age:59 Y???Sex:Male Gorge e:04/05/2024 Address:[address] [place], [place] [phone] Subjective: * Chief Complaints: * ???ANNUAL EXAM/must see UA * HPI: ???Depression Screening:?PHQ-9?Little interest or pleasure [...] it was really needed? Check all that apply:?None.?Symptom(s):?patient is a 59 yo male here for annual visit with review of recent labs and follow up of chronic issues, woke up with olecranon bursitis in rt arm and took bactrim and is better. * ROS:?General/Constitutional:?Patient denies?fatigue, headache.?Change in appetite?denies.?Chills?denies.?Fever?denies.?Ophthalmologic:?Blurred vision?denies.?Discharge?denies.?Pain?denies.?ENT:?Patient denies?decreased sense of smell, any loss of taste, sore throat.?Decreased hearing?denies.?Sore throat?denies.?Swollen glands?denies.?Endocrine:?Cold intolerance?denies.?Excessive thirst?denies.?Heat [...] one occasion in the past year??Never (0 point),?Points?3,?Interpretation?Negative.?Miscellaneous:?Caffeine: no. Children: yes. Community involvements: no. Exercise: yes, bikes and walks 3 times a week. Home smoke detector use: yes. Housing: owning. Living with: family. Marital status: single. Occupation: weeks/months/years, works full-time. Pets: cats: dogs:1 dog. Travel outside of the [place]: yes, [place]. * Medications:?Not-Taking/PRNI ndomethacin 50 MG Capsule 1 capsule with food or milk Orally Three times a day Valtrex 1 GM Tablet 1 tablet Orally every 8 hrs Not-Taking/PRN Indomethacin 50 MG Capsule 1 capsule with food or milk Orally Three times a day Not-Taking/PRN Valtrex 1 GM Tablet 1 tablet Orally every 8 hrs * Allergies:?Penicillin G [place] athine: Rashyes[Allergies Verified] Objective: * Vitals:?Ht: 73, Wt: 230, BMI :30.34, BP:108/60, Wt-k.33. weight is up 7 pounds since 02-10-25. * ???Past Orders: ???Lab:Microalbumin, Random (Order Date - 04/01/2024) (Collection Date & Time - 04/01/2024 07:15 AM) ? Value Reference Range ?Creatinine Urine 400.16 - m g/dL ?Microalbumin Urine 21.0 - mg/L ?Microalbum Creatinine Ratio Ur 5.2 <30 - ug/mg cr ???Lab:Hemoglobin A1c (Order Date - 04/01/2024) (Collection Date & Time - 04/01/2024 07:15 AM) ? Value Reference Range ?Hemoglobin A1c % 5.1 <6. 0 - % ?Estimated Average Glucose 100 - mg/dL ???Lab:Complete Blood Count Auto Diff (Order Date - 04/01/2024) (Collection Date & Time - 04/01/2024 07:15 AM) ? Value Reference Range ?White Blood Count 9.4 4. 8-10.8 - X10*3/uL ?Red Blood Count 5.44 4.60 -5.80 - X10*6/uL ?Hemoglobin 17.5 14.0-18.0 - g/dl ?Hematocrit 50.9 42.0-52.0 - % ?Mean Corpuscular Volume 93.6 80.0-98.0 - fL ?Mean Corpuscular Hemoglobin 32.2 27.0-33.0 - pg ?Mean Corpuscular HGB Conc 34.4 31.0-36.0 - g/dl ?Red Cell Distribution Width 12.3 11.0-16.0 - % ?Platelet Count 201 160-4 00 - X10*3/uL ?Mean Platelet Volume 10.3 9.4-12.4 - fL ?Neutrophils Percent Auto 69.4 45-73 - % ?Imm Gran Pct Auto 0.2 0. 0-0.4 - % ?Lymphocytes Percent Auto 18.6 L 20-40 - % ?Monocytes Percent Auto 9.9 2-11 - % ?Eosinophils Percent Auto 1.3 0-4 - % ?Basophils Percent Auto 0.6 0-2 - % ?NRBC Pct Auto 0.0 0.0-0. 2 - /100WBC ?Neutrophils Absolute Auto 6.6 2.0-8.3 - x10*3/uL ?Imm Gran Abs Auto 0.02 0. 00-0.03 - X10*3/uL ?Lymphocytes Absolute Auto 1.8 1.2-4.9 - X10*3/uL ?Monocytes Absolute Auto 0.9 0.1-1.2 - X10*3/uL ?Eosinophils Absolute Auto 0.1 0.0-0.4 - X10*3/uL ?Basophils Absolute Auto 0.1 0.0-0.2 - X10*3/uL ?NRBC Abs Auto 0.000 0.0-0. 012 - X10*3/uL ???Lab:Urine Culture (Order Date - 04/01/2024) (Collection Date & Time - 04/01/2024) ? Value Reference Range ?Urine Culture No growth. - ???Lab:Comprehensive Spencer. P mary alice Fast (Order Date - 04/01/2024) (Collection Date & Time - 04/01/2024 07:15 AM) ? Value Reference Range ?Sodium 139 135-145 - mmo l/L ?Bilirubin Total 1.5 H 0.0- 1.0 - mg/dL ?Aspartate Amino Transferase 21 5-37 - U/L ?Alanine Aminotransferase 23 0-40 - U/L ?Total Protein 7.6 6.5-8. 0 - g/dL ?Albumin Level 4.1 3.5-5. 0 - g/dL ?Alkaline Phosphatase 80 39-117 - U/L ?Potassium 4.3 3.3-5.1 - mmol/L ?Chloride 107 96-108 - mm ol/L ?Carbon Dioxide 24 22-29 - mmol/L ?Anion Gap 12 12-20 - ?Blood Urea Nitrogen 12 9-16 - mg/dL ?Creatinine 1.10 0.5-1.4 - mg/dL ?Estimated Glomerular Filt Rate > 60 - ?Glucose Fasting 115 H 60-9 9 - mg/dL ?Calcium 9.7 8.4-10.2 - m g/dL ???Lab:Lipid Panel (Order Da te - 04/01/2024) (Collection Date & Time - 04/01/2024 07:15 AM) ? Value Reference Range ?Triglycerides 88 <150 - mg/dL ?Cholesterol 164 <200 - m g/dL ?LDL Cholesterol Calculated 90 <100 - mg/dL ?HDL Cholesterol 57 >40 - mg/dL ???Lab:PSA,Total (Free>4and< 10) (Order Date - 04/01/2024) (Collection Date & Time - 04/01/2024 07:15 AM) ? Value Reference Range ?PSA,Total (Free>4and<10) 0.97 0.00-4.00 - ng/mL * Examination: ???General Examination: ?GENERAL APPEARANCE:?well developed, [...] prostate normal, stool guaiac negative.?MALE GENITOURINARY:?circumcised, no testicular mass, testes descended bilaterally.?EXTREMITIES:?no clubbing, cyanosis, or edema.?NEUROLOGIC:?nonfocal, motor strength normal upper and lower extremities, sensory exam intact.? Assessment: * Assessment: 1.?Annual physical exam - Z0 0.00 (Primary)???2.?Microscopic hematuria - R31.29???3.?Prediabetes - R73.09???4.?Colon cancer screening - Z12.11???5.?Depression screening - Z13.31??? Plan: * Treatment: 2.?Microscopic hematuria?LAB: Urinalysis and Microscopic (Collection Date & Time - 04/05/2024 02:00 PM) Notes: pending ;labs, will continue to monitor?? 3.?Prediabetes? Notes: doing well, no need for medication at this time?? 4.?Colon cancer screening?LAB: Occult Blood, Stool, Guaiac (Collection Date & Time - 04/05/2024)?Negative ? Value Reference Range ?Occult Blood, Stool, Guaiac Neg Notes: guaiac negative??5.?Depression screening? Notes: negative screen?? * Procedure Codes:?16920 TEST FOR BLOOD, FECES * * Sign off status: Completed true * Provider:?Austin Benz MD Date:?0 04/05/2024 Generated for Bree dunlap/Marychuy/eTransmitting on:?07/15/2024 12:42 PM EDT History and Physical Notes * HPI (History of Present Illness) Category Sub-Category Detail Notes Category Not es Symptom(s) patient is a 59 yo male here for annual visit with review of recent labs and follow up of chronic issues, woke up with olecranon bursitis in rt arm and took bactrim and is better Depression Screening PHQ-9 Little inte rest or [...] s, or edema MALE GENITOURINARY: circumcised, no test icular mass, testes descended bilaterally RECTAL EXAM: normal tone, no exte rnal hemorrhoids, no masses palpable, prostate normal, stool guaiac negative ORAL CAVITY: mucosa moist
--- OUTSIDE RECORDS SUMMARY | 2024-07-15 12:43 | XMS_ITS ---
Author Organization Austin Benz MD Address [address] [place] [phone] Care Team Providers Care Cleaner Laboratory Equipment Name Role Phone Austin Benz Primary Care Provider [phone] REASON FOR VISIT U/A hematuria Encounters Encounter Location Date Provider Diagnosis Austin Benz MD [address] [place] [phone] 07/15/2024 Austin Benz Hematuria R31.9 Assessments Encounter Date Diagnosis (ICD Code) Assessment Notes Treatment Notes Treatment Clinical Notes Section Notes 07/15/2024 Hematuria (ICD-10 - R31.9) Plan Of Treatment Pending Test Test Name Order Date UA ClnCatch+Micro w/rflx Cult 07/15/2024 Next Appt Details Provider Name:Austin lopez, 04/01/2025 07:30:00 AM, [address] [place] [address], [address], [phone], Provider Name:Austin lopez, 04/08/2025 08:30:00 AM, [address] [place] [address], [address], [phone], Progress Notes * Randall ROGERS JrDOB:[birth year] (59 yo M)Acc No.[id number]:07/15/2024 Progress Note Patient:?Randall ROGERS Jr Provider:?Austin Benz MD :1965???Age:59 Y???Sex:Male Gorge e:07/15/2024 Address:[address], [id number] Subjective: * Chief Complaints: * ???1. U/A hematuria. * Medical History:? Objective: * Vitals:? Assessment: * Assessment: 1.?Hematuria - R31.9??? Plan: * Treatment: * * The named appointment provid er may or may not be the originator of this progress note, and it is not deemed complete until electronically signed by the appointment provider. Sign off status: Pending * Provider:?Austin Benz MD Date:?0 07/15/2024 Generated for Bree dunlap/Marychuy/Dean on:?07/15/2024 12:43 PM EDT
[2024-07-15 12:44] LABS: Bacteria Urine None Seen (None Seen); Hyaline Casts Urine 0-2 /LPF (0-2); RBC Urine 0-2 /HPF (0-2); Squamous Epithelial Cell Urine 0-2 /HPF (0-2); WBC Urine 0-5 /HPF (0-5)
== END 2024-07-15 12:13 | disposition home or self-care (01) ==
LOC: HO.LNP 12:12
PROVIDERS: Visit Provider Internal Medicine
DX: R31.9 Hematuria, unspecified (principal)
CPT/HCPCS: 81001